=== PATIENT | female | born 1995 | race Caucasian/White ===

== ENCOUNTER 2022-02-06 07:51 | Emergency (ER) | payer SELFPAY ==
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
[2022-02-06 08:48] LABS: Absolute Lymphocytes (CBC) 2.8 K/uL (0.7-4.9); Hematocrit 36.6 % (36.0-45.0); Lymphocytes % 29.3 % (15.3-44.8); MCV 94.9 fL (80-100); MPV 8.4 fL (7.6-11.3); RBC Red Blood Cell Count 3.86 M/uL (3.86-4.86)
[2022-02-06 09:02] LABS: Albumin 4.4 g/dL (3.4-5.0); Bilirubin Total 0.6 mg/dL (0.2-1.0); Potassium 3.3 mmol/L (3.5-5.1); Protein, Total 7.8 g/dL (6.4-8.2); Troponin High Sensitivity 4.6 pg/mL (<58.9)
--- NOTE | 2022-02-06 09:23 | RAD REPORT ---
EXAM DESCRIPTION: RAD - Chest Single View - 02/06/2022 9:05 am CLINICAL HISTORY: CHEST PAIN Chest pain. COMPARISON: No comparisons FINDINGS: Portable technique limits examination quality. The lungs are grossly clear. The heart is normal in size. No displaced fractures. IMPRESSION: No acute intrathoracic process suspected.
--- NOTE | 2022-02-06 09:28 | ER ---
Nurse's Notes [facility] Name: Ann Rodas Age: 26 yrs Sex: Female : 1995 Arrival Date: 02/06/2022 Time: 07:53 Bed 15 Private MD: Diagnosis: Chest pain, unspecified Presentation: 02/06 08:16 Chief complaint: Patient states: Facial twitching started last night at work (lasted ll1 about 2 hours). Noticed CP and hand numbness since. Coronavirus screen: Vaccine status: Patient reports being unvaccinated. Client denies travel out of the [place] in the last 14 days. At this time, the client does not indicate any symptoms associated with coronavirus-19. Ebola Screen: Patient denies travel to an Ebola-affected area in the 21 days before illness onset. Initial Sepsis Screen: Does the patient meet any 2 criteria? No. Patient's initial sepsis screen is negative. Does the patient have a suspected source of infection? No. Patient's initial sepsis screen is negative. Risk Assessment: Do you want to hurt yourself or someone else? Patient reports no desire to harm self or others. Onset of symptoms was February 05, 2022. 08:16 Method Of Arrival: Ambulatory ll1 08:16 Acuity: CHUCK 3 ll1 Triage Assessment: 08:00 General: Appears uncomfortable, Behavior is cooperative, appropriate for age. Pain: ll1 Complains of pain in chest Pain currently is 7 out of 10 on a pain scale. Neuro: Reports numbness in right hand and left hand paresthesias facial twitching. Cardiovascular: Reports chest pain. 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 - Social history:: Smoking status: Reported history of juuling and/or vaping. Screenin:39 Abuse screen: Denies threats or abuse. Denies injuries from another. Nutritional db screening: No deficits noted. Tuberculosis screening: No symptoms or risk factors identified. Fall Risk None identified. No fall in past 12 months (0 pts). No secondary diagnosis (0 pts). IV access (20 points). Ambulatory Aid- None/Bed Rest/Nurse Assist (0 pts). Gait- Normal/Bed Rest/Wheelchair (0 pts) Mental Status- Oriented to own ability (0 pts). Total Delarosa Fall Scale indicates No Risk (0-24 pts). Assessment: 08:30 Reassessment: chest pain, bilateral hand numbness and facial tingling last night. db states it resolved today but does not "feel right". General: Appears in no apparent distress. comfortable, Behavior is calm, cooperative, appropriate for age, quiet. Pain: Complains of pain in chest Pain does not radiate. Pain began 1 day ago. Neuro: No deficits noted. Level of Consciousness is awake, alert, obeys commands, Oriented to person, place, time, situation, Appropriate for age Speech is normal, Facial symmetry appears normal. 09:39 Reassessment: Patient appears in no apparent distress at this time. Patient and/or db family updated on plan of care and expected duration. Pain level reassessed. Patient is alert, oriented x 3, equal unlabored respirations, skin warm/dry/pink. Patient states feeling better. Patient states symptoms have improved. Vital Signs: 08:15 BP 113 / 79; Pulse 63; Resp 16; Pulse Ox 100% on R/A; db 08:16 BP 122 / 70; Pulse 62; Resp 16; Temp 98.3; Pulse Ox 98% on R/A; Weight 56.7 kg; Height ll1 5 ft. 7 in. (170.18 cm); Pain 7/10; 09:39 BP 116 / 85; Pulse 75; Resp 16; Pulse Ox 100% on R/A; db 08:16 Body Mass Index 19.58 (56.70 kg, 170.18 cm) ll1 ED Course: 07:53 Patient arrived in ED. rg4 07:58 Ekta Barnard FNP-C [facility] kb 07:58 Jae Jacob MD is Attending Physician. kb 07:58 Arm band placed on Patient placed in an exam room, on a stretcher. ll1 08:06 Franny Ordoñez, MARÍA is Primary Nurse. db 08:17 Triage completed. ll1 08:17 EKG completed in triage. Results shown to MD. ll1 08:33 Inserted saline lock: 20 gauge in right antecubital area, using aseptic technique. db Blood collected. 09:06 Chest Single View XRAY In Process Unspecified. EDMS 09:39 No provider procedures requiring assistance completed. IV discontinued, intact, db bleeding controlled, No redness/swelling at site. Patient maintains SpO2 saturation greater than 95% on room air. 09:40 Patient has correct armband on for positive identification. Bed in low position. Call db light in reach. Side rails up X 1. Pulse ox on. NIBP on. Administered Medications: 09:35 Drug: Potassium Chloride 20 mEq Route: PO; db 09:39 Follow up: Response: No adverse reaction db Medication: 08:38 VIS not applicable for this client. db Outcome: 09:28 Discharge ordered by . kb 09:39 Discharged to home ambulatory. db 09:39 Condition: stable 09:39 Discharge instructions given to patient, Instructed on discharge instructions, follow up and referral plans. Demonstrated understanding of instructions. 09:43 Patient left the ED. db Signatures: Dispatcher [employer] EDMS Ekta Barnard, JAVA APPLICATION DEVELOPER-C JAVA APPLICATION DEVELOPER-Neetu Loya rg4 Ernestine Daily, RN RN ll1 Franny Ordoñez, RN RN db
--- NOTE | 2022-02-06 09:28 | EDPHYS ---
Physician Documentation [facility] Name: Ann Rodas Age: 26 yrs Sex: Female : 1995 Arrival Date: 02/06/2022 Time: 07:53 Bed 15 Private MD: ED Physician Jae Jacob HPI: 02/06 08:02 This 26 yrs old Female presents to ER via Unassigned with complaints of Chest Pain, kb Numbness Of Hand, Facial Twitch. 08:02 The patient or guardian reports chest pain that is located primarily in the chest kb diffusely. The pain does not radiate. Associated signs and symptoms: Pertinent positives: twitching to face and bilateral hand numbness. The chest pain is described as aching. Duration: The patient or guardian reports a single episode. Modifying factors: The symptoms are alleviated by nothing. the symptoms are aggravated by nothing. Severity of pain: At its worst the pain was mild in the emergency department the pain is unchanged. The patient has not experienced similar symptoms in the past. The patient has not recently seen a physician. Pt reports she was at work last night and started having twitching to her face that lasted for about 2 hours. States she also had numbness to both hands and chest pain. Reports numbness and twitching have resolved, but she continues to have some chest pain. 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 - Social history:: Smoking status: Reported history of juuling and/or vaping. ROS: 08:01 Constitutional: Negative for fever, chills, and weight loss. kb 08:01 Cardiovascular: Positive for chest pain, Negative for edema, orthopnea, palpitations, paroxysmal nocturnal dyspnea. 08:01 All other systems are negative. Exam: 08:01 Constitutional: This is a well developed, well nourished patient who is awake, alert, kb and in no acute distress. Head/Face: Normocephalic, atraumatic. ENT: Moist Mucous membranes Cardiovascular: Regular rate and rhythm with a normal S1 and S2. No gallops, murmurs, or rubs. No pulse deficits. Respiratory: Respirations even and unlabored. No increased work of breathing. Talking in full sentences Abdomen/GI: Soft, non-tender. No distention Skin: Warm, dry with normal turgor. Normal color. MS/ Extremity: Pulses equal, no cyanosis. Neurovascular intact. Full, normal range of motion. Neuro: Awake and alert, GCS 15, oriented to person, place, time, and situation. Moves all extremities. Normal gait. Psych: Awake, alert, with orientation to person, place and time. Behavior, mood, and affect are within normal limits. 08:14 ECG was reviewed by the Attending Physician. kb Vital Signs: 08:15 BP 113 / 79; Pulse 63; Resp 16; Pulse Ox 100% on R/A; db 08:16 BP 122 / 70; Pulse 62; Resp 16; Temp 98.3; Pulse Ox 98% on R/A; Weight 56.7 kg; Height ll1 5 ft. 7 in. (170.18 cm); Pain 7/10; 09:39 BP 116 / 85; Pulse 75; Resp 16; Pulse Ox 100% on R/A; db 08:16 Body Mass Index 19.58 (56.70 kg, 170.18 cm) ll1 MDM: 07:58 Patient medically screened. kb 08:01 Data reviewed: vital signs, nurses notes. Data interpreted: Pulse oximetry: on room air kb is 100 %. Interpretation: normal. 09:27 Counseling: I had a detailed discussion with the patient and/or guardian regarding: the kb historical points, exam findings, and any diagnostic results supporting the discharge/admit diagnosis, lab results, radiology results, the need for outpatient follow up, a family practitioner, to return to the emergency department if symptoms worsen or persist or if there are any questions or concerns that arise at home. 02/06 08:01 Order name: CBC with Diff; Complete Time: 08:54 kb 02/06 08:01 Order name: CMP; Complete Time: 09:16 kb 02/06 08:01 Order name: Troponin High Sensitivity; Complete Time: 09:16 kb 02/06 08:01 Order name: Chest Single View XRAY; Complete Time: 09:27 kb 02/06 08:01 Order name: EKG; Complete Time: 08:01 kb 02/06 08:01 Order name: IV Start; Complete Time: 08:37 kb 02/06 08:01 Order name: EKG - Nurse/Tech; Complete Time: 08:18 kb EC:14 Rate is 70 beats/min. Rhythm is regular. QRS [place] is Normal. [place] interval is normal at kb 156 msec. QRS interval is normal at 98 msec. QT interval is normal at 442 msec. Administered Medications: 09:35 Drug: Potassium Chloride 20 mEq Route: PO; db 09:39 Follow up: Response: No adverse reaction db Disposition: 11:06 Co-signature as Attending Physician, Jae Jacob MD I agree with the assessment and rt plan of care. Disposition Summary: 02/06/22 09:28 Discharge Ordered Location: Home kb Condition: Stable kb Diagnosis - Chest pain, unspecified kb Followup: kb - With: Emergency Department - When: As needed - Reason: Worsening of condition Followup: kb - With: Private Physician - When: 2 - 3 days - Reason: Recheck today's complaints, Continuance of care, Re-evaluation by your physician Discharge Instructions: - Discharge Summary Sheet kb - Nonspecific Chest Pain, Adult, [id number] kb Forms: - Medication Reconciliation Form kb - Thank You Letter kb - Antibiotic Education kb - Work release form kb - Prescription Opioid Use kb Signatures: Dispatcher [employer] Ekta Alvarado, SHANTI-Missy MOSER-Ernestine Mckeon, RN RN ll1 Franny Ordoñez, RN RN Jae Lee MD MD rt
[2022-02-06] MEDS ORDERED: POTASSIUM CL SA 10 MEQ TAB PO ONE (09:31)
[2022-02-06 10:12] VITALS: TEMP 98.3
[2022-02-06 10:13] VITALS: BP 116/85; O2SAT 100
--- NOTE | 2022-02-08 16:35 | EKG ---
Test Date: 2022-02-06 Test Time: 08:11:51 Adventure Challenge Instructor: JESENIA MEASUREMENT RESULTS: Intervals: Rate: 70 AR: 156 QRSD: 98 QT: 410 QTc: 442 [place]: P: 75 AR: 156 QRS: 86 T: 65 INTERPRETIVE STATEMENTS: Normal sinus rhythm Normal ECG No previous ECG available for comparison Electronically Signed On 02-08-22 16:34:12 TAKE AWAY ATTENDANT by Kit Banda
== END 2022-02-06 09:43 | disposition home or self-care (01) ==
LOC: ER 07:51
DX: R07.89 Other chest pain (principal)
CPT/HCPCS: 36415; 71045; 80053; 84484; 85025; 93005; 99284

== ENCOUNTER 2022-03-04 10:53 | Emergency (ER) | payer SELFPAY ==
--- OUTSIDE RECORDS SUMMARY | 2022-03-04 10:55 | XMS REPORT | Continuity of Care Document ---
:[address] [facility] t Address [address] [place] [address] Care Team Providers Name Role Phone ARELY Attending Clinician Unavailable Maria Eugenia Attending Clinician Unavailable ARELY Admitting Clinician Unavailable Maria Eugenia Admitting Clinician Unavailable Payers Payer Name Policy Type Policy Number Effective Date Expiration Date S bhavanice [place]OM[place]'S [id number] HEALTH PROGRAM (MEDICAID) Problems Condition Condition Condition [...] Stop Date Source [facility] Medications This patient has no known medications. Vital Signs Vital Name Observation Time Observation Value Comments Source BP Diastolic 2021-08-23 00:00:00 65 mm[Hg] [facility] Height 2021-08-23 00:00:00 66 [in_i] [facility] BMI (Body Mass 2021-08-23 00:00:00 24.6 kg/m2 [facility] Medical Index) Group BP Systolic 2021-08-23 00:00:00 105 mm[Hg] [facility] Body Weight 2021-08-23 00:00:00 152.2 [lb_av] [facility] BP Diastolic 2019-12-24 00:00:00 83 mm[Hg] [facility] Height 2019-12-24 00:00:00 66 [in_i] [facility] BMI (Body Mass 2019-12-24 00:00:00 25.2 kg/m2 [facility] Medical Index) Group BP Systolic 2019-12-24 00:00:00 115 mm[Hg] [facility] Body Weight 2019-12-24 00:00:00 156.1 [lb_av] [facility] BP Diastolic 2015-01-12 00:00:00 72 mm[Hg] [facility] Height 2015-01-12 00:00:00 66 [in_i] [facility] BMI (Body Mass 2015-01-12 00:00:00 33.1 kg/m2 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 Index) Group BP Systolic 2015-01-12 00:00:00 130 mm[Hg] [facility] Body Weight 2015-01-12 00:00:00 205 [lb_av] [facility] Procedures Procedure Date / Time Performed Performing Clinician Sour e unlisted imaging order 2021-08-23 00:00:00 [facility] Plan of Care Planned Activity Planned Date Details Comments Source Diagnostic Test 2021-08-23 pap, LB + CT/NG/TV [facility] 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 gauger and 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 Medical Pending 00:00:00 + reflex HR HPV Group [code = pap, LB + CT/NG/TV + reflex HR HPV] Diagnostic Test 2021-08-23 urinalysis, [place] dical Pending 00:00:00 dipstick [code = Group urinalysis, dipstick] Encounters Start End Encounter Admission Attending Care Care Encounter Source Date/Time Date/Time Type Type Clinicians Facility Department ID 2021-10-02 2021-10-02 Outpatient NOHEMI_NANDO WALI [facility] [id number] [facility] 11:35:00 11:35:00 0719 [facility] Outre h Program 2021-08-24 2021-08-24 Outpatient G_Pappas [facility] 2021 [place] 12:06:00 12:06:00 0610 [facility] 2021-08-23 2021-08-23 Outpatient G_Pappas [facility] [id number] [facility] 11:36:00 11:36:00 0609 [facility] 2021-08-23 2021-08-23 Jenny [facility] [place] - [id number] M [facility] 00:00:00 00:00:00 Discovery andre Camilo [employer]GER-BC: [address], [place] [address] , Ph. [phone] 2020-01-20 2020-01-20 Outpatient G_Pappas [facility] 2019 [place] 09:27:00 09:27:00 1105 [facility] 2019-12-24 2019-12-24 Outpatient G_Pappas [facility] 2019 [place] 03:02:00 03:02:00 1009 [facility] 2019-12-24 2019-12-24 Outpatient G_Pappas [facility] 2019 [place] 03:02:00 03:02:00 1010 [facility] 2019-12-24 2019-12-24 Sudarshan FUNES [place] - [id number] M at[facility] 00:00:00 00:00:00 Discovery andre Calixto MD: [address] [place] [phone] , Ph. [phone] 2019-12-23 2019-12-23 Outpatient G_Pappas [facility] MM 2019 [place] 04:34:00 04:34:00 1008 Medical Group 2015-08-04 2015-08-04 Sudarshan FUNES [place] - [id number] M [facility] 00:00:00 00:00:00 Discovery andre Calixto MD: [address] [place] [phone] , Ph. [phone] 2015-01-12 2015-01-12 Sudarshan FUNES [place] - [id number] M [facility] 00:00:00 00:00:00 Discovery andre Calixto MD: [address] [place] [phone] , Ph. [phone] 2014-12-29 2014-12-29 Sudarshan FUNES [place] - [id number] M [facility] 00:00:00 00:00:00 Discovery andre Calixto MD: [address] [place] [phone] , Ph. [phone] Results Test Description Test Time Test Comments [...] Blood (test code = Blood) Negative Specific [place] (test code = Specific [place]) 1.020 Ketone (test code = Ketone) Negative Bilirubin (test code = Bilirubin) Negative Glucose (test code = Glucose) Negative Appearance (test code = Appearance) Clear Color (test code = Color) Yellow [facility] - cancer history assessment [id number] 09:43:00 Test Item Value Reference Range Interpretation Comments [facility] - cancer history meets criteria A assessment result (test code = [facility] cancer history assessment result) [facility] [id number] 12:54:00Results [facility]
--- NOTE | 2022-03-04 11:55 | RAD REPORT ---
EXAM DESCRIPTION: US - Transvaginal OB - 03/04/2022 11:39 am CLINICAL HISTORY: VAGINAL BLEEDING COMPARISON: No comparisons FINDINGS: Uterus is normal size with no myometrial mass. No blood or abnormal fluid collection in th e cul de sac. Tri laminar endometrial stripe is present 6-7 mm in maximum thickness. No gestational s ac or sac remnant. There is no mass, polyp or other abnormality within the endometrium. Both ovaries are identified. Bilateral cysts and follicles are present with no dominant solid or cyst ic ovarian or adnexal abnormality. No focal adnexal abnormality to suspect an ectopic . Dopp ler evaluation shows normal blood flow within the ovarian stroma. IMPRESSION: Unremarkable endovaginal pelvic ultrasound as detailed. No abnormality seen to explain a bnormal vaginal bleeding.
[2022-03-04 12:34] LABS: Urine Blood Negative (Negative); Urine Glucose Negative (Negative); Urine Protein Negative (Negative); Urine Specific Gravity 1.025 (1.005-1.030); Urine pH 6.5 (5.0-7.0)
[2022-03-04 12:41] LABS: Absolute Lymphocytes (CBC) 2.2 K/uL (0.7-4.9); Hematocrit 36.9 % (36.0-45.0); Lymphocytes % 25.9 % (15.3-44.8); MCV 95.9 fL (80-100); MPV 8.2 fL (7.6-11.3); RBC Red Blood Cell Count 3.85 M/uL (3.86-4.86)
[2022-03-04 12:46] LABS: Urine Specific Gravity/Preg 1.025 (1.005-1.030)
[2022-03-04 12:59] LABS: BUN Blood Urea Nitrogen 9 mg/dL (7-18); Bicarbonate 28 mmol/L (21-32); Glomerular Filtration Rate 128 ml/min (=/>90); Glucose Level 90 mg/dL (74-106); Potassium 3.6 mmol/L (3.5-5.1); Sodium Level 141 mmol/L (136-145)
[2022-03-04 13:08] LABS: HCG, Quantitative < 1 mIU/mL (1-3)
--- NOTE | 2022-03-04 13:19 | ER ---
Nurse's Notes [facility] Name: Ann Rodas Age: 26 yrs Sex: Female : 1995 Arrival Date: 03/04/2022 Time: 11:03 Bed 15 Private MD: Diagnosis: Irregular menstruation, unspecified Presentation: 03/04 11:08 Chief complaint: Patient states: positive x2 weeks ago; spotting this morning 5 and came straigt here. 11:09 Coronavirus screen: Vaccine status: Patient reports receiving the 2nd dose of the covid jh5 vaccine. Client denies travel out of the [place] in the last 14 days. Ebola Screen: Patient negative for fever greater than or equal to 101.5 degrees Fahrenheit, and additional compatible Ebola Virus Disease symptoms Patient denies exposure to infectious person. Patient denies travel to an Ebola-affected area in the 21 days before illness onset. 11:09 Method Of Arrival: Ambulatory [facility] 12:30 Acuity: CHUCK 3 em6 12:30 Initial Sepsis Screen: Does the patient meet any 2 criteria? No. Patient's initial em6 sepsis screen is negative. Does the patient have a suspected source of infection? No. Patient's initial sepsis screen is negative. Risk Assessment: Do you want to hurt yourself or someone else? Patient reports no desire to harm self or others. 12:30 Onset of symptoms was March 04, 2022. em6 Triage Assessment: 11:17 General: Appears in no apparent distress. Behavior is calm, cooperative, appropriate 5 for age. Pain: Denies pain. : Reports vaginal bleeding that is spotty. 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 - Social history:: Smoking status: Patient reports the use of cigarette tobacco products, denies chronic smoking, but will smoke occasionally. Screenin:30 [facility] ED Fall Risk Assessment (Adult) History of falling in the last 3 months, em6 including since admission No falls in past 3 months (0 pts) Confusion or Disorientation No (0 pts) Intoxicated or Sedated No (0 pts) Impaired Gait No (0 pts) Mobility Assist Device Used No (0 pt) Altered Elimination No (0 pt) Score/Fall Risk Level 0 - 2 = Low Risk Oriented to surroundings, Maintained a safe environment, Educated pt \\T\\ family on fall prevention, incl call for assistance when getting out of bed, Assessed \\T\\ reinforced patient's understanding of fall precautions, Provided non-skid footwear, Hourly rounding (assess needs \\T\\ fall precautionary measures) done, Used ambulatory aids as needed (educated on \\T\\ assisted with), Used gait belt as appropriate. Abuse screen: Denies threats or abuse. Nutritional screening: No deficits noted. Tuberculosis screening: No symptoms or risk factors identified. Fall Risk Total Delarosa Fall Scale indicates No Risk (0-24 pts). Assessment: 12:30 General: Appears in no apparent distress. Behavior is cooperative. Pain: Denies pain. em6 Neuro: Level of Consciousness is awake, alert, obeys commands, Oriented to person, place, time, situation. Cardiovascular: Patient's skin is warm and dry. Respiratory: Airway is patent Respiratory effort is even, unlabored, Respiratory pattern is regular, symmetrical, Breath sounds are clear bilaterally. GI: Abdomen is non-distended, Bowel sounds present X 4 quads. Abd is soft and non tender X 4 quads. : Reports vaginal bleeding that is spotty. EENT: No signs and/or symptoms were reported regarding the EENT system. Derm: No signs and/or symptoms reported regarding the dermatologic system. Musculoskeletal: Circulation, motion, and sensation intact. Range of motion: intact in all extremities. Vital Signs: 11:17 BP 148 / 81; Pulse 94; Resp 16; Temp 98.1; Pulse Ox 100% ; Weight 68.04 kg; Height 5 5 ft. 8 in. (172.72 cm); Pain 0/10; 12:43 BP 111 / 73; Pulse 94; Resp 18; Pulse Ox 100% on R/A; em6 11:17 Body Mass Index 22.81 (68.04 kg, 172.72 cm) [facility] ED Course: 11:03 Patient arrived in ED. as 11:03 [facility] kb 11:03 Raul Aguayo DO is Attending Physician. kb 11:17 Arm band placed on right wrist. jh5 11:41 Transvaginal Ob In Process Unspecified. EDMS 11:55 Luzma Lee, RN is Primary Nurse. em6 12:30 Bed in low position. Call light in reach. Side rails up X 1. cardiac monitor technician on. Pulse em6 ox on. NIBP on. Warm blanket given. 12:34 Inserted saline lock: 22 gauge in left antecubital area, using aseptic technique. Blood em6 collected. 12:55 Triage completed. em6 13:37 No provider procedures requiring assistance completed. IV discontinued, intact, em6 bleeding controlled, No redness/swelling at site. Pressure dressing applied. Administered Medications: No medications were administered Medication: 13:37 VIS not applicable for this client. em6 Point of Care Testing: Urine : 12:55 hCG Reading: Negative; Control Reading: Negative; em6 Outcome: 13:19 Discharge ordered by . kb 13:37 Discharged to home ambulatory. em6 13:37 Condition: stable 13:37 Discharge instructions given to patient, Instructed on discharge instructions, follow up and referral plans. Demonstrated understanding of instructions, follow-up care. 13:37 Patient left the ED. em6 Signatures: Dispatcher [employer] EDMS Ekta Barnard, ELECTRIC SCREW DRIVER OPERATOR-C ELECTRIC SCREW DRIVER OPERATOR-Jessika Khan Jessica, RN RN 5 Luzma Lee, RN RN em6
--- NOTE | 2022-03-04 13:20 | EDPHYS ---
Physician Documentation [facility] Name: Ann Rodas Age: 26 yrs Sex: Female : 1995 Arrival Date: 03/04/2022 Time: 11:03 Bed 15 Private MD: ED Physician Raul Aguayo HPI: 03/04 11:15 This 26 yrs old Female presents to ER via Ambulatory with complaints of Vaginal kb Bleeding, + Preg <12wks. 11:15 The patient presents to the emergency department with vaginal bleeding, described as kb spotting. course: care: none. Previous pregnancies: in previous pregnancies patient has had. Associated signs and symptoms: Pertinent positives: vaginal bleeding, Pertinent negatives: abdominal pain, vaginal discharge. The patient has not experienced similar symptoms in the past. The patient has not recently seen a physician. Pt reports she had a positive test about 2 weeks ago and started spotting today. 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 - Social history:: Smoking status: Patient reports the use of cigarette tobacco products, denies chronic smoking, but will smoke occasionally. ROS: 11:15 Constitutional: Negative for fever, chills, and weight loss. kb 11:15 : Positive for vaginal bleeding. 11:15 Neuro: Positive for headache. 11:15 All other systems are negative. Exam: 11:15 Constitutional: This is a well developed, well nourished patient who is awake, alert, kb and in no acute distress. Head/Face: Normocephalic, atraumatic. ENT: Moist Mucous membranes Cardiovascular: Regular rate and rhythm with a normal S1 and S2. No gallops, murmurs, or rubs. No pulse deficits. Respiratory: Respirations even and unlabored. No increased work of breathing. Talking in full sentences Abdomen/GI: Soft, non-tender. No distention Skin: Warm, dry with normal turgor. Normal color. MS/ Extremity: Pulses equal, no cyanosis. Neurovascular intact. Full, normal range of motion. Neuro: Awake and alert, GCS 15, oriented to person, place, time, and situation. Moves all extremities. Normal gait. Vital Signs: 11:17 BP 148 / 81; Pulse 94; Resp 16; Temp 98.1; Pulse Ox 100% ; Weight 68.04 kg; Height 5 5 ft. 8 in. (172.72 cm); Pain 0/10; 12:43 BP 111 / 73; Pulse 94; Resp 18; Pulse Ox 100% on R/A; em6 11:17 Body Mass Index 22.81 (68.04 kg, 172.72 cm) 5 MDM: 11:08 Patient medically screened. kb 11:16 Data reviewed: vital signs, nurses notes. Data interpreted: Pulse oximetry: on room air kb is 100 %. Interpretation: normal. 13:18 Counseling: I had a detailed discussion with the patient and/or guardian regarding: the kb historical points, exam findings, and any diagnostic results supporting the discharge/admit diagnosis, lab results, radiology results, the need for outpatient follow up, a family practitioner, to return to the emergency department if symptoms worsen or persist or if there are any questions or concerns that arise at home. 03/04 11:08 Order name: Abo/rh Typing; Complete Time: 13:37 kb 03/04 11:08 Order name: Basic Metabolic Panel; Complete Time: 13:17 kb 03/04 11:08 Order name: CBC with Diff; Complete Time: 13:06 kb 03/04 11:08 Order name: Quantitative Hcg; Complete Time: 13:17 kb 03/04 12:34 Order name: Urine Dipstick-Ancillary; Complete Time: 12:43 EDMS 03/04 12:38 Order name: Urine --Ancillary (enter results); Complete Time: 12:49 em1 03/04 11:08 Order name: US Transvaginal Ob; Complete Time: 11:56 kb 03/04 11:08 Order name: IV Saline Lock; Complete Time: 12:33 kb 03/04 11:08 Order name: Labs collected and sent; Complete Time: 12:33 kb 03/04 11:08 Order name: NPO; Complete Time: 11:22 kb 03/04 11:08 Order name: Urine Dipstick-Ancillary (obtain specimen); Complete Time: 12:33 kb 03/04 11:08 Order name: Urine Test (obtain specimen); Complete Time: 12:33 kb Administered Medications: No medications were administered Point of Care Testing: Urine : 12:55 hCG Reading: Negative; Control Reading: Negative; em6 Disposition: 13:44 Co-signature as Attending Physician, Raul Aguayo DO I was immediately available on-site ms3 in the Emergency Department for consultation in the care of the patient. Disposition Summary: 03/04/22 13:19 Discharge Ordered Location: Home kb Condition: Stable kb Diagnosis - Irregular menstruation, unspecified kb Followup: kb - With: Emergency Department - When: As needed - Reason: Worsening of condition Followup: kb - With: Private Physician - When: 2 - 3 days - Reason: Recheck today's complaints, Continuance of care, Re-evaluation by your physician Discharge Instructions: - Discharge Summary Sheet kb - Abnormal Uterine Bleeding, [id number] kb Forms: - Medication Reconciliation Form kb - Thank You Letter kb - Antibiotic Education kb - Prescription Opioid Use kb Signatures: Dispatcher [employer] EDEkta Arana, SHANTI-C HOLE DIGGER OPERATOR-Raul Samuel DO DO ms3 Ankita Epperson, RN RN jh5
[2022-03-04 13:42] VITALS: TEMP 98.1; O2SAT 100
[2022-03-04 13:43] VITALS: BP 111/73
== END 2022-03-04 13:37 | disposition home or self-care (01) ==
LOC: ER 10:53
DX: N92.6 Irregular menstruation, unspecified (principal); F17.210 Nicotine dependence, cigarettes, uncomplicated
CPT/HCPCS: 36415; 76817; 80048; 81003; 81025; 84702; 85025; 86900; 86901; 99284